=== PATIENT | female | born 1965 | race Caucasian/White ===

== ENCOUNTER 2017-06-17 05:20 | Day surgery (SDC) | payer OTHER ==
[2017-06-17] MEDS ORDERED: CEFAZOLIN 2 GM/50 ML (PMX) 50 ML IVPB (05:30)
[2017-06-17] MEDS ORDERED: SOD CHLORIDE 0.9% 1,000 ML IV (05:30)
[2017-06-17] MEDS: BUPIVACAINE 0.25% (MPF) 30 ML INJ (07:24)
[2017-06-17] MEDS ORDERED: ROCURONIUM 50 MG INJ (07:29)
[2017-06-17] MEDS ORDERED: MIDAZOLAM 1 MG/ML 2 ML INJ (07:29)
[2017-06-17] MEDS ORDERED: CEFAZOLIN 1 GM INJ (07:29)
[2017-06-17] MEDS ORDERED: ROPIVACAINE 0.5 % 30 ML VIAL (07:29)
[2017-06-17] MEDS ORDERED: PROPOFOL 20 ML (07:29)
[2017-06-17] MEDS ORDERED: FENTAnyl 50 MCG/ML VIAL (07:29)
[2017-06-17] MEDS ORDERED: PHENYLephrine (100 MCG/ML) 5ML SYG (07:55)
[2017-06-17] MEDS ORDERED: SUGAMMADEX SODIUM 200 MG/2 ML VIAL IV (08:00)
[2017-06-17] MEDS ORDERED: DEXAMETHASONE 4 MG/ML 1 ML INJ (08:00)
[2017-06-17] MEDS ORDERED: METOCLOPRAMIDE 10 MG INJ (08:00)
[2017-06-17] MEDS ORDERED: KETOROLAC 30 MG INJ (08:00)
[2017-06-17] MEDS ORDERED: ONDANSETRON 4 MG INJ (08:00)
[2017-06-17] MEDS ORDERED: DIPHENHYDRAMINE 50 MG INJ IV (08:30)
[2017-06-17] MEDS ORDERED: LABETALOL HCL 20MG INJ IV (08:30)
[2017-06-17] MEDS ORDERED: OXYCODONE/ACETAMINOPHEN (5/325) TAB PO (08:30)
[2017-06-17] MEDS ORDERED: HYDROmorphONE (0.2 MG/ML) 10ML SYG IV ×2 (08:30)
[2017-06-17] MEDS ORDERED: EPHEDrine SULFATE 50 MG/5 ML SYG IV (08:30)
[2017-06-17] MEDS ORDERED: METOCLOPRAMIDE 10 MG INJ IV (08:30)
[2017-06-17] MEDS ORDERED: FENTAnyl 50 MCG/ML VIAL IV ×3 (08:30)
[2017-06-17] MEDS ORDERED: MEPERIDINE 25 MG INJ IV (08:30)
[2017-06-17] MEDS ORDERED: ONDANSETRON 4 MG INJ IV (08:30)
[2017-06-17] MEDS: HYDROmorphONE (0.2 MG/ML) 10ML SYG IV (09:34)
[2017-06-17] MEDS: HYDROCODONE/APAP (5/325) TAB PO (10:16)
== END 2017-06-17 10:50 | disposition home or self-care (01) ==
LOC: SDS 05:20
DX: K80.10 Calculus of gallbladder with chronic cholecystitis without obstruction (principal); E66.9 Obesity, unspecified; Z68.34 Body mass index [BMI] 34.0-34.9, adult
CPT/HCPCS: 47562; 88304